=== PATIENT | female | born 1975 | race Caucasian/White ===

== ENCOUNTER → 2019-02-02 | Outpatient (CLI) | payer OTHER ==
--- NOTE | 2019-02-02 14:05 | NUR ---
VAT CONSULTED FOR A PICC FOR HOME ABX. 4FRSLPICC PLACED LUABASILIC
[2019-02-02 15:57] VITALS: BP 142/87
--- NOTE | 2019-02-02 16:07 | NUR ---
PATIENT IN FOR PICC LINE PLACEMENT AND 1ST DOSE OF CEFTRIAXONE. IV TEAM PLACED SINGLE LUMEN PICC LINE IN GERRY. PLACEMENT VERIFIED BY IV TEAM. CEFTRIAXONE INFUSED AND PATIENT TOLERATED WELL WITHOUT INCIDENT. SALINE LOCKED PICC LINE. HOME HEALTH VISITED TO INSTRUCT PATIENT ON HOME THERAPY. DISMISSED IN STABLE CONDITION.
== END ==
LOC: OPONC 12:33
DX: M86.8X7 Other osteomyelitis, ankle and foot (principal)
CPT/HCPCS: 27000; 95000

== ENCOUNTER 2019-03-12 09:16 | Day surgery (SDC) | payer OTHER ==
[~2019-03-12] VITALS: Ht 157.5 cm; Wt 81.7 kg
[~2019-03-12 09:16] MED LIST: MULTI VITAMIN1 EACH PO
[2019-03-12 09:50] VITALS: BP 126/78
[2019-03-12 09:56] LABS: HEMATOCRIT 39.6 % (37.0-47.0); HEMOGLOBIN 13.1 gm/dL (12.0-15.0)
--- NOTE | 2019-03-13 17:07 | PATH ---
[facility] [address] [place] [address] PATHOLOGY RPT PROCEDURE Name: NAA ROSA LOZADA Room #: DEP [facility] [place] M.R.#: [id number] Admission: 03/12/19 Date of : 71 Discharge: 03/12/19 Report #: [id number] Path Case #: [id number] [facility] Accession Number: [id number] . 01 Material submitted: . toe - RIGHT GREAT TOE BONE. Modifiers: right . 01 Clinical history: . Cellulitis of right toe, other chronic osteomyelitis, right ankle and foot. Rash and other nonspecific skin eruption. Localized edema . 02 Diagnosis: Toe, right great toe bone, amputation: - Acute and chronic osteomyelitis along with overlying tissue showing granulation tissue as well as reparative changes, history of cellulitis. (IUV/db; 03/13/2019) LBQ 03/13/2019 1540 Local . 02 Electronically signed: . Rhona Valdez MD, Pathologist NPI- [id number] . 01 Gross description: . The specimen is received in formalin, labeled "Lozada, Ana Rosa, bone right great toe" and consists of 4 fragments of pink-page bone and soft tissue measuring between 0.4 x 0.3 x 0.1 cm and 1.3 x 1.0 x 0.6 cm which are entirely submitted in A1 following the calcification. (SDY; 03/12/2019) SYU/SYU 03/12/2019 1700 Local . 02 Pathologist provided ICD-10: M86.171 . 02 CPT . 037597, [id number] Specimen Comment: A courtesy copy of this report has been sent to [phone] Specimen Comment: Report sent to / DR FERNÁNDEZ Performed at: [address], [place] [id number] MD Fahad Jade MD Phone: [phone] Performed at: [address] [id number] MD Rhona Valdez MD Phone: [phone]
== END 2019-03-12 13:15 | disposition home or self-care (01) ==
LOC: OR 09:16 → TBA 09:19 → OR 10:48
PROVIDERS: Podiatrist Foot & Ankle Surgery
DX: M86.171 Other acute osteomyelitis, right ankle and foot (principal); M86.671 Other chronic osteomyelitis, right ankle and foot; L03.031 Cellulitis of right toe; Z98.890 Other specified postprocedural states; Z85.828 Personal history of other malignant neoplasm of skin; Z88.2 Allergy status to sulfonamides; Z87.891 Personal history of nicotine dependence; Z90.711 Acquired absence of uterus with remaining cervical stump; Z91.040 Latex allergy status; Z98.51 Tubal ligation status
CPT/HCPCS: 50010; 50101; 50386; 56526; 57091; 57178; 62110; 62850; 70005

== ENCOUNTER → 2019-03-23 | Outpatient (CLI) | payer OTHER | LOC: BC 10:28 | DX: Z12.31 Encounter for screening mammogram for malignant neoplasm of breast (principal) ==

== ENCOUNTER 2020-05-15 20:25 | Emergency (ER) | payer OTHER ==
[~2020-05-15] VITALS: Ht 157.5 cm; Wt 68.0 kg
[2020-05-15 21:00] LABS: ABSOLUTE NEUTROPHILS 6.6 thou/uL (1.4-8.2); BASOPHILS 0.7 % (0.0-2.0); HEMATOCRIT 37.5 % (37.0-47.0); HEMOGLOBIN 12.3 gm/dL (12.0-15.0); LYMPHOCYTES 22.7 % (24.0-44.0); MCH 29.9 pg (26.0-34.0); MCHC 32.8 g/dL (28.0-37.0); MCV 91.2 fL (80.0-100.0); MONOCYTES 5.8 % (1.0-8.0); PLATELET COUNT 325 thou/uL (150-400); POLYS 50.8 % (36.0-66.0); RBC 4.12 mil/uL (4.20-5.00); RDW 13.4 % (10.5-14.5); WBC 12.9 thou/uL (4.0-11.0)
[2020-05-15 21:08] LABS: ANION GAP 7 mmol/L (7-16); BUN 11 mg/dL (7-18); CALCIUM 8.9 mg/dL (8.5-10.1); CHLORIDE 104 mmol/L (98-107); CO2 26 mmol/L (21-32); CREATININE 0.9 mg/dL (0.6-1.0); GLUCOSE 113 mg/dL (74-106); POTASSIUM 3.7 mmol/L (3.5-5.1); SODIUM 137 mmol/L (136-145)
[2020-05-15 21:19] LABS: ALBUMIN 3.4 g/dL (3.4-5.0); SGOT 16 U/L (15-37); SGPT 24 U/L (14-59); TOTAL BILIRUBIN 0.2 mg/dL (0.2-1.0); TOTAL PROTEIN 6.7 g/dL (6.4-8.2); TROPONIN-I <0.06 ng/mL (<0.06)
[2020-05-15] MEDS ORDERED: CARAFATE 1 GM TA1 G1 PO (23:37)
[2020-05-15] MEDS ORDERED: ONDANSETRON HCL4 M2 PO (23:37)
[2020-05-15] MEDS ORDERED: NORCO 10-325 T1 EACH PO (23:37)
[2020-05-15 23:59] VITALS: BP 111/75
--- NOTE | 2020-05-16 13:08 | EKG ---
[place] [address] [facility] [place] [address] ELECTROCARDIOGRAM REPORT Name: MICHAEL BINGHAM [facility] #: [id number] Admission: 05/15/20 Attend Phys: Discharge: 05/15/20 Date of : 71 Report #: [id number] [facility] Test Date: 2020-05-15 Test Time: 20:31:59 Pat Name: MICHAEL BINGHAM Department: Room: Gender: F Sr. Social Media & Mobile Manager: EDYTA : 1975 Requested By: Karlee Minaya Order Number: [id number] MD: Vasile Young Measurements Intervals [place] Rate: 90 P: 25 NM: 110 QRS: 16 QRSD: 100 T: 7 QT: 362 QTc: 443 Interpretive Statements Sinus rhythm Borderline short NM interval Baseline wander in lead(s) V1 No previous ECG available for comparison Electronically Signed On 05-16-2020 13:08:27 CDT by Vasile Young [email or web address] <ELECTRONICALLY SIGNED> By: Vasile Young MD, [facility] 05/16/20 1308 30 30 Vasile Young MD, FACC /EPI
[2020-05-17 05:07] LABS: HAV IgM AB (ANTI-HAV IgM) Negative (Negative); HEPATITIS B SURFACE AG Negative (Negative)
== END 2020-05-15 23:55 | disposition home or self-care (01) ==
LOC: ER 20:25
PROVIDERS: Physician Assistant
DX: K29.70 Gastritis, unspecified, without bleeding (principal); R07.89 Other chest pain; Z88.2 Allergy status to sulfonamides